=== PATIENT | female | born 2000 | race Caucasian/White ===

== ENCOUNTER 2018-07-03 10:59 | Outpatient (CLI) | payer MEDICAID | END 2018-07-03 13:50 | disposition home or self-care (01) | LOC: OBT 10:59 → L-D 10:59 → OBT 13:50 | DX: O46.8X3 Other antepartum hemorrhage, third trimester (principal); Z3A.38 38 weeks gestation of pregnancy | CPT/HCPCS: 76815; 76818 ==

== ENCOUNTER 2018-07-04 06:37 | Inpatient (IN) | payer MEDICAID ==
[2018-07-04] MEDS ORDERED: OXYCODONE/ACETAMINOPHEN (5/325) TAB PO (07:30)
[2018-07-04] MEDS ORDERED: IBUPROFEN 600 MG TAB PO (07:30)
[2018-07-04] MEDS ORDERED: METHYLERGONOVINE 0.2 MG INJ IM ×2 (07:30→13:30)
[2018-07-04] MEDS ORDERED: OXYTOCIN 30 UNITS/LR 500 ML IV ×2 (07:30→13:30)
[2018-07-04] MEDS ORDERED: MISOPROSTOL 200 MCG TAB PR ×2 (07:30→13:30)
[2018-07-04] MEDS ORDERED: CARBOPROST 250 MCG INJ IM ×2 (07:30→13:30)
[2018-07-04] MEDS: AMPICILLIN 2 GM/NS (PMX) 100 ML IV (08:08)
[2018-07-04 08:18] LABS: ADD MAN DIFF? NO
[2018-07-04] MEDS: BUTORPHANOL 2 MG INJ IV (08:20)
[2018-07-04] MEDS: LACTATED RINGER'S 1,000 ML IV (08:23)
[2018-07-04 08:25] LABS: BASOPHIL # 0.1 10^3/ul (0.0-0.1); BASOPHILS % 0.3 % (0.0-2.0); EOSINOPHILS % 0.1 % (0.0-7.0); HEMATOCRIT 39.3 % (37.0-47.0); HEMOGLOBIN 12.8 g/dl (12.0-16.0); LYMPHOCYTES # 2.3 10^3/ul (0.8-2.9); LYMPHOCYTES % 14.9 % (18.0-55.0); MEAN CORPUSCULAR HEMOGLOBIN 28.8 pg (29.0-33.0); MEAN CORPUSCULAR HGB CONC 32.6 g/dl (32.0-37.0); MEAN CORPUSCULAR VOLUME 88.5 fl (72.0-104.0); MEAN PLATELET VOLUME 11.8 fl (7.4-10.4); MONOCYTE # 0.6 10^3/ul (0.3-0.9); MONOCYTES % 3.8 % (0.0-13.0); NEUTROPHIL # 12.5 10^3/ul (1.6-7.5); NEUTROPHILS % 80.2 % (30.0-74.0); PLATELET COUNT 216 10^3/UL (140-415); RED BLOOD COUNT 4.44 10^6/ul (4.20-5.40); RED CELL DISTRIBUTION WIDTH 13.6 % (11.5-14.5)
[2018-07-04 08:25] LABS: WHITE BLOOD COUNT 15.6 10^3/ul (4.8-10.8)
[2018-07-04 08:39] LABS: INR 0.83; PROTIME 11.5 Sec (11.9-14.9); PT RATIO 0.9
[2018-07-04 08:40] LABS: PARTIAL THROMBOPLASTIN TIME 26.2 Sec (23.0-35.0)
[2018-07-04 09:25] LABS: AMPHETAMINE/METHAMPHETAMINE Negative (NEGATIVE); BARBITURATES Negative (NEGATIVE); BENZODIAZEPINES Negative (NEGATIVE); CANNABINOIDS Negative (NEGATIVE); COCAINE Negative (NEGATIVE); OPIATES Negative (NEGATIVE)
[2018-07-04 10:05] LABS: HEPATITIS B SURFACE ANTIGEN NEGATIVE (NEGATIVE)
[2018-07-04] MEDS: LIDOCAINE 1% (MPF) 30 ML INJ INJ (10:26)
[2018-07-04] MEDS: OXYTOCIN 30 UNITS/LR 500 ML IV ×2 (10:26→10:46)
[2018-07-04] MEDS: CEFAZOLIN 2 GM/50 ML (PMX) 50 ML IVPB (11:09)
[2018-07-04] MEDS: MAGNESIUM HYDROXIDE 30ML CUP PO (11:27)
[2018-07-04] MEDS: HYDROCODONE/APAP (5/325) TAB PO (11:27)
[2018-07-04] MEDS ORDERED: AMPICILLIN 1 GM/NS (PMX) 50 ML IV (11:30)
[2018-07-04] MEDS: DEXTROSE 5%-LR 1,000 ML IV (13:16)
[2018-07-04] MEDS ORDERED: ZOLPIDEM 5 MG TAB PO (13:30)
[2018-07-04] MEDS ORDERED: OXYCODONE/ASPIRIN (4.88/325) TAB PO (13:30)
[2018-07-04] MEDS ORDERED: DIBUCAINE 1% 30 GM OINT TOP (13:30)
[2018-07-04] MEDS ORDERED: DIPHENHYDRAMINE 50 MG INJ IV (13:30)
[2018-07-04] MEDS ORDERED: ONDANSETRON 4 MG INJ IV (13:30)
[2018-07-04] MEDS ORDERED: ACETAMINOPHEN 325 MG TAB PO (13:30)
[2018-07-04] MEDS: LANOLIN HPA 1 PKT TOP (16:18)
[2018-07-04] MEDS: WITCH HAZEL/GLYCERIN PAD PR (16:19)
[2018-07-04] MEDS: BENZOCAINE 20% 56 ML SPRAY TOP (16:19)
[2018-07-04] MEDS: LACTATED RINGER'S 1,000 ML IV* (16:20)
[2018-07-04] MEDS: IBUPROFEN 600 MG TAB PO ×2 (18:12→23:48)
[2018-07-04] MEDS: SENNA/DOCUSATE NA (8.6MG/50MG) TAB PO (21:27)
[2018-07-04 22:17] LABS: RAPID PLASMA REAGIN NONREACTIVE (NR)
[2018-07-05] MEDS: IBUPROFEN 600 MG TAB PO ×3 (05:53→18:17)
[2018-07-05] MEDS: DEXTROSE 5%-LR 1,000 ML IV (07:00)
[2018-07-05] MEDS: LACTATED RINGER'S 1,000 ML IV* (07:00)
[2018-07-05 09:27] LABS: ADD MAN DIFF? NO
[2018-07-05 09:33] LABS: BASOPHIL # 0.1 10^3/ul (0.0-0.1); BASOPHILS % 0.4 % (0.0-2.0); EOSINOPHILS % 0.2 % (0.0-7.0); HEMATOCRIT 31.6 % (37.0-47.0); HEMOGLOBIN 10.2 g/dl (12.0-16.0); LYMPHOCYTES # 3.4 10^3/ul (0.8-2.9); LYMPHOCYTES % 26.8 % (18.0-55.0); MEAN CORPUSCULAR HEMOGLOBIN 29.4 pg (29.0-33.0); MEAN CORPUSCULAR HGB CONC 32.3 g/dl (32.0-37.0); MEAN CORPUSCULAR VOLUME 91.1 fl (72.0-104.0); MEAN PLATELET VOLUME 11.4 fl (7.4-10.4); MONOCYTE # 0.6 10^3/ul (0.3-0.9); MONOCYTES % 4.5 % (0.0-13.0); NEUTROPHIL # 8.6 10^3/ul (1.6-7.5); NEUTROPHILS % 67.6 % (30.0-74.0); PLATELET COUNT 177 10^3/UL (140-415); RED BLOOD COUNT 3.47 10^6/ul (4.20-5.40); RED CELL DISTRIBUTION WIDTH 14.1 % (11.5-14.5)
[2018-07-05 09:33] LABS: WHITE BLOOD COUNT 12.8 10^3/ul (4.8-10.8)
[2018-07-05] MEDS: MAGNESIUM HYDROXIDE 30ML CUP PO (15:53)
[2018-07-05] MEDS: SENNA/DOCUSATE NA (8.6MG/50MG) TAB PO ×2 (15:53→21:29)
[2018-07-06] MEDS: IBUPROFEN 600 MG TAB PO ×3 (00:05→12:13)
[2018-07-06] MEDS: MEASLES,MUMPS,RUBELLA VACCINE INJ SC* (07:14)
[2018-07-06] MEDS: SENNA/DOCUSATE NA (8.6MG/50MG) TAB PO (09:47)
[2018-07-06] MEDS: DIPHTH/TET/ACEL PERTUSS (ADULT) 0.5 ML VIAL IM* (09:48)
[2018-07-06 11:42] LABS: RUBELLA ANTIBODY - IGG 1.39 index
[2018-07-07 12:42] LABS: RUBELLA ANTIBODY - IGM <20.00 AU/mL
== END 2018-07-06 13:00 | disposition home or self-care (01) | DRG 807 ==
LOC: OBT 06:37 → L-D 06:38 → OBT 07:10 → L-D 07:10 → PP1 14:01
PROC: 10E0XZZ Delivery of Products of Conception, External Approach (ICD-10-PCS; principal; 2018-07-04)
PROC: 0KQM0ZZ Repair Perineum Muscle, Open Approach (ICD-10-PCS; 2018-07-04)
PROC: 0W8NXZZ Division of Female Perineum, External Approach (ICD-10-PCS; 2018-07-04)
DX: O71.4 Obstetric high vaginal laceration alone (principal); Z37.0 Single live birth; Z3A.38 38 weeks gestation of pregnancy; Z23 Encounter for immunization
CPT/HCPCS: 80307; 85025; 85610; 85730; 86592; 86762; 86850; 86900; 86901; 87340; 90715